=== PATIENT | female | born 1970 ===

== ENCOUNTER 2021-05-14 15:58 | Inpatient (IN) | payer MEDICAID, OTHER ==
[2021-05-14] VITALS (9 sets, daily range): BP systolic 113–132; BP diastolic 60–74
[~2021-05-14] VITALS: Ht 162.6 cm; Wt 64.5 kg
--- NOTE | 2021-05-14 16:15 | NUR ---
PT AMBULATORY TO ROOM FROM TRIAGE, CHANGED INTO GOWN. MONITORS IN PLACE. CALL LIGHT WITHIN REACH
--- NOTE | 2021-05-14 16:43 | NUR ---
MED STUDENT AT BS
--- NOTE | 2021-05-14 17:05 | NUR ---
PT RESTING ON SIRI DAUGHERTYN/VSS. CALL LIGHT WITHIN REACH. NO NEEDS AT THIS TIME
--- NOTE | 2021-05-14 17:32 | NUR ---
XRAY AT BS
--- NOTE | 2021-05-14 17:40 | NUR ---
PT SITTING ON NICOLE DAUGHERTY/GALEN. CALL LIGHT WITHIN REACH. NO NEEDS AT THIS TIME
[2021-05-14 17:44] LABS: MEAN CORPUSCULAR HEMOGLOBIN 15.1 pg (27.0-34.8); MEAN PLATELET VOLUME 8.2 fL (7.4-10.4); PLATELET COUNT 347 x10^3/uL (130-400); RED CELL DISTRIBUTION WIDTH 22.1 % (9.6-15.2)
[2021-05-14 17:55] LABS: ALBUMIN 3.7 g/dL (3.4-5.0); ANION GAP 6 mmol/L (5-15); CALCIUM 8.4 mg/dL (8.5-10.1); CHLORIDE 106 mmol/L (98-107)
[2021-05-14 17:56] LABS: MICROSCOPIC AUTO
[2021-05-14 18:07] LABS: ALANINE AMINOTRANSFERASE 18 U/L (12-78); ALKALINE PHOSPHATASE 51 U/L (45-117); BILIRUBIN,TOTAL 0.4 mg/dL (0.2-1.0); CREATININE 0.52 mg/dL (0.55-1.02); FREE T4 (FREE THYROXINE) 0.89 ng/dL (0.76-1.46); TOTAL PROTEIN 7.5 g/dL (6.4-8.2)
[2021-05-14 18:12] LABS: MEAN CORPUSCULAR HGB CONC 28.5 g/dL (32.4-35.8)
[2021-05-14 18:17] LABS: BASOS#(MANUAL) 0.04 x10^3/uL (0-0.1); BASOS% (MANUAL) 1 % (0-1); LYMPH#(MANUAL) 2.48 x10^3/uL (1-3.4); LYMPHS% (MANUAL) 59 % (22-44); MONOS#(MANUAL) 0.67 x10^3/uL (0.3-2.7); MONOS% (MANUAL) 16 % (2-9); SEG#(MANUAL) 1.01 x10^3/uL (1.8-6.8); SEGS% (MANUAL) 24 % (42-75)
[2021-05-14 18:19] LABS: ANISOCYTOSIS 2+; HYPOCHROMIA 3+; MICROCYTOSIS 3+; OVALOCYTES 1+; TARGET CELLS 1+
[2021-05-14 18:20] LABS: <PLATELET ESTIMATE> ADEQUATE; <PLT MORPHOLOGY> NORMAL PLT MORPH; POLYCHROMASIA 1+
--- NOTE | 2021-05-14 18:39 | NUR ---
MULTIPLE PIV ATTEMPTS. UNABLE TO OBTAIN PIV ACCESS AT THIS TIME
--- NOTE | 2021-05-14 18:49 | NUR ---
SHAINA RN AT BS FOR ULTRASOUND IV
--- NOTE | 2021-05-14 18:50 | NUR ---
REPORT TO PATRICE GRIJALVA
--- NOTE | 2021-05-14 18:54 | NUR ---
REPORT FROM RADHA RN
--- NOTE | 2021-05-14 19:45 | NUR ---
REPORT TO HILLARY IBRAHIM
[2021-05-14] MEDS ORDERED: ONDANSETRON 2MG/ML, 2ML IVPush PRN (20:00)
[2021-05-14] MEDS ORDERED: DOCUSATE 100 MG CAPSULE PO PRN (20:00)
[2021-05-14] MEDS ORDERED: GUAIFENESIN/DM 200-20MG, 10ML UDC PO PRN (20:00)
[2021-05-14] MEDS ORDERED: ZOLPIDEM 5MG TABLET PO PRN (20:00)
[2021-05-14] MEDS ORDERED: ENALAPRILAT 1.25 MG/ML, 2ML IVPush PRN (20:00)
[2021-05-14] MEDS ORDERED: morphine SULFATE 10 MG/ML, 1ML IVPush PRN (20:00)
[2021-05-14] MEDS ORDERED: METHOCARBAMOL 500 MG TABLET PO PRN (20:00)
--- NOTE | 2021-05-14 20:20 | NUR ---
BLOOD TRANSFUSION OF PRBC STARTED AT 1956, PT TOLERATING WELL AT 15 MIN CHECK POINT, GALEN RIVERA
[2021-05-14] MEDS: IRON SUCROSE COMPLEX 100MG/5ML IV SCH (21:50)
[2021-05-15] MEDS: LACTATED RINGERS 1,000 ML IV SCH ×2 (00:05→17:13)
[2021-05-15 01:00] VITALS: BP 134/77
[2021-05-15 05:19] LABS: MEAN CORPUSCULAR HEMOGLOBIN 19.7 pg (27.0-34.8); MEAN CORPUSCULAR HGB CONC 31.2 g/dL (32.4-35.8); MEAN PLATELET VOLUME 8.3 fL (7.4-10.4); PLATELET COUNT 299 x10^3/uL (130-400); RED BLOOD COUNT 4.06 x10^6/uL (3.82-5.3); RED CELL DISTRIBUTION WIDTH 33.4 % (9.6-15.2)
[2021-05-15 05:24] LABS: ANION GAP 6 mmol/L (5-15); CALCIUM 8.6 mg/dL (8.5-10.1); CHLORIDE 111 mmol/L (98-107); CREATININE 0.56 mg/dL (0.55-1.02)
[2021-05-15 06:08] LABS: EOS#(MANUAL) 0.04 x10^3/uL (0.0-0.4); EOS% (MANUAL) 1 % (1-7); LYMPH#(MANUAL) 2.02 x10^3/uL (1-3.4); LYMPHS% (MANUAL) 48 % (22-44)
[2021-05-15 06:10] LABS: ANISOCYTOSIS 3+; HYPOCHROMIA 3+; MICROCYTOSIS 2+; MONOS#(MANUAL) 0.29 x10^3/uL (0.3-2.7); MONOS% (MANUAL) 7 % (2-9); SEG#(MANUAL) 1.85 x10^3/uL (1.8-6.8); SEGS% (MANUAL) 44 % (42-75)
[2021-05-15 06:11] LABS: OVALOCYTES 1+; POLYCHROMASIA 1+
[2021-05-15 06:12] LABS: <PLATELET ESTIMATE> ADEQUATE; <PLT MORPHOLOGY> NORMAL PLT MORPH
[2021-05-15 07:10] VITALS: BP 119/72
[2021-05-15] MEDS: IRON SUCROSE COMPLEX 100MG/5ML IV SCH (08:39)
[2021-05-15 12:23] VITALS: BP 141/75
[2021-05-15] MEDS ORDERED: LEVO25CA4 PO (16:32)
[2021-05-15 18:28] VITALS: BP 139/75
[2021-05-16] VITALS (9 sets, daily range): BP systolic 124–148; BP diastolic 73–81
[2021-05-16] MEDS: OXYcodone IR 5MG TABLET PO PRN ×2 (01:45→22:15)
[2021-05-16] MEDS: ACETAMINOPHEN 325 MG TABLET PO PRN ×2 (01:45→22:15)
[2021-05-16] MEDS: LEVOTHYROXINE 25 MCG TABLET PO SCH (05:13)
[2021-05-16 05:39] LABS: MEAN CORPUSCULAR HEMOGLOBIN 19.6 pg (27.0-34.8); MEAN CORPUSCULAR HGB CONC 30.9 g/dL (32.4-35.8); MEAN PLATELET VOLUME 8.2 fL (7.4-10.4); PLATELET COUNT 291 x10^3/uL (130-400); RED BLOOD COUNT 4.06 x10^6/uL (3.82-5.3); RED CELL DISTRIBUTION WIDTH 34.1 % (9.6-15.2)
[2021-05-16 05:44] LABS: ANION GAP 4 mmol/L (5-15); CALCIUM 8.6 mg/dL (8.5-10.1); CHLORIDE 109 mmol/L (98-107)
[2021-05-16 06:30] LABS: ANISOCYTOSIS 2+; EOS#(MANUAL) 0.34 x10^3/uL (0.0-0.4); EOS% (MANUAL) 6 % (1-7); HYPOCHROMIA 3+; LYMPH#(MANUAL) 3.14 x10^3/uL (1-3.4); LYMPHS% (MANUAL) 56 % (22-44); MICROCYTOSIS 2+; MONOS#(MANUAL) 0.28 x10^3/uL (0.3-2.7); MONOS% (MANUAL) 5 % (2-9); OVALOCYTES 1+; POLYCHROMASIA 1+; SEG#(MANUAL) 1.85 x10^3/uL (1.8-6.8); SEGS% (MANUAL) 33 % (42-75)
[2021-05-16 06:31] LABS: <PLATELET ESTIMATE> ADEQUATE; <PLT MORPHOLOGY> NORMAL PLT MORPH
[2021-05-16] MEDS: IRON SUCROSE COMPLEX 100MG/5ML IV SCH (08:30)
[2021-05-16] MEDS ORDERED: GOLYTELY 4,000ML ORAL.SOL PO ONE (14:00)
[2021-05-17 02:18] VITALS: BP 129/72
[2021-05-17] MEDS: LACTATED RINGERS 1,000 ML IV SCH ×2 (05:12→23:40)
[2021-05-17] MEDS: LEVOTHYROXINE 25 MCG TABLET PO SCH (05:15)
[2021-05-17 05:32] LABS: MEAN CORPUSCULAR HEMOGLOBIN 20.8 pg (27.0-34.8); MEAN CORPUSCULAR HGB CONC 30.9 g/dL (32.4-35.8); MEAN PLATELET VOLUME 8.4 fL (7.4-10.4); PLATELET COUNT 292 x10^3/uL (130-400); RED BLOOD COUNT 4.48 x10^6/uL (3.82-5.3)
[2021-05-17 05:40] LABS: INTERNATIONAL NORMALIZED RATIO 0.99 (0.93-1.1); PROTHROMBIN TIME 10.6 Seconds (9.6-11.5)
[2021-05-17 05:44] LABS: ANION GAP 6 mmol/L (5-15); CALCIUM 8.6 mg/dL (8.5-10.1); CHLORIDE 110 mmol/L (98-107); CREATININE 0.62 mg/dL (0.55-1.02)
[2021-05-17 06:17] LABS: BAND#(MANUAL) 0.05 x10^3/uL; BANDS%(MANUAL) 1 % (0-7); EOS#(MANUAL) 0.15 x10^3/uL (0.0-0.4); EOS% (MANUAL) 3 % (1-7); LYMPH#(MANUAL) 2.94 x10^3/uL (1-3.4); LYMPHS% (MANUAL) 60 % (22-44); METAMYELOCYTES# (MANUAL) 0.05 x10^3/uL (0-0); METAMYELOCYTES% (MANUAL) 1 % (0-1); MONOS#(MANUAL) 0.25 x10^3/uL (0.3-2.7); MONOS% (MANUAL) 5 % (2-9); SEG#(MANUAL) 1.47 x10^3/uL (1.8-6.8); SEGS% (MANUAL) 30 % (42-75)
[2021-05-17 06:18] LABS: ANISOCYTOSIS 2+; HYPOCHROMIA 3+; MICROCYTOSIS 2+; OVALOCYTES 1+; POLYCHROMASIA 1+
[2021-05-17 06:19] LABS: <PLATELET ESTIMATE> ADEQUATE; <PLT MORPHOLOGY> NORMAL PLT MORPH
[2021-05-17] MEDS: IRON SUCROSE COMPLEX 100MG/5ML IV SCH (07:36)
[2021-05-17 07:50] VITALS: BP 124/76
[2021-05-17 12:44] VITALS: BP 135/80
[2021-05-17] MEDS ORDERED: CEFOTETAN PMX 1GM/50ML 50 ML IVPB ONE (17:30)
[2021-05-17] MEDS ORDERED: INDOCYANINE GREEN 25 MG VIAL ONE (17:39)
[2021-05-17] MEDS ORDERED: EPINEPHRINE 1 MG/ML, 1ML ONE (17:39)
[2021-05-17] MEDS ORDERED: HEPARIN 1,000 UNITS/ML, 10ML ONE (17:39)
[2021-05-17] MEDS ORDERED: BUPIVACAINE/PF 0.25% ONE (17:39)
[2021-05-17] MEDS ORDERED: FENTANYL PF 250 MCG/5ML ONE (18:29)
[2021-05-17] MEDS ORDERED: MIDAZOLAM 1 MG/ML, 2ML ONE (18:29)
[2021-05-17] MEDS ORDERED: ONDANSETRON 2MG/ML, 2ML ONE (19:16)
[2021-05-17] MEDS ORDERED: ROCURONIUM 10MG/ML,5ML ONE ×2 (19:16→20:34)
[2021-05-17] MEDS ORDERED: GLYCOPYRROLATE 0.2MG/1ML, 5ML ONE (19:16)
[2021-05-17] MEDS ORDERED: SUCCINYLCHOLINE 20 MG/ML, 10ML ONE (19:16)
[2021-05-17] MEDS ORDERED: DEXAMETHASONE 4 MG/ML, 1ML ONE (19:16)
[2021-05-17] MEDS ORDERED: NEOSTIGMINE 1 MG/ML, 10ML ONE (19:16)
[2021-05-17] MEDS ORDERED: CEFAZOLIN 1,000 MG ONE (19:16)
[2021-05-17] MEDS ORDERED: PROPOFOL 10 MG/ML, 20ML ONE (19:16)
[2021-05-17] MEDS ORDERED: HYDROmorphone 1 MG/ML, 1ML INJ ONE ×3 (19:17→22:06)
[2021-05-17] MEDS ORDERED: SUGAMMADEX 200 MG/2 ML IVPush ONE (20:59)
[2021-05-17] MEDS ORDERED: hydrALAzine 20 MG/ML, 1ML IV PRN (21:30)
[2021-05-17] MEDS ORDERED: METHOCARBAMOL 1,000 MG in DEXTROSE 5% 100 ML IV PRN (21:30)
[2021-05-17] MEDS ORDERED: ONDANSETRON 2MG/ML, 2ML IVPush PRN (21:30)
[2021-05-17] MEDS ORDERED: PROMETHAZINE 25 MG/ML, 1ML IVPush PRN (21:30)
[2021-05-17] MEDS ORDERED: ACETAMINOPHEN 325 MG TABLET PO PRN (21:30)
[2021-05-17] MEDS ORDERED: OXYcodone 5 MG/5 ML ORAL.SOL UDC PO PRN (21:30)
[2021-05-17] MEDS ORDERED: PROMETHAZINE 25 MG SUPP PR PRN (21:30)
[2021-05-17] MEDS ORDERED: LORazepam 2 MG/ML, 1ML IVPush PRN (21:30)
[2021-05-17] MEDS ORDERED: HYDROmorphone 1 MG/ML, 1ML INJ IVPush PRN (21:30)
[2021-05-17] MEDS ORDERED: LABETALOL 5MG/ML, 20ML IV PRN (21:30)
[2021-05-17] MEDS ORDERED: MEPERIDINE/PF 25MG/0.5ML IVPush PRN (21:30)
[2021-05-17] MEDS ORDERED: LABETALOL 5MG/ML, 20ML ONE (21:32)
[2021-05-17] MEDS ORDERED: FENTANYL PF 100 MCG/2ML ONE (21:46)
[2021-05-17] MEDS ORDERED: OXYcodone 5 MG/5 ML ORAL.SOL UDC ONE ×2 (21:47→22:06)
[2021-05-17] MEDS: FENTANYL PF 100 MCG/2ML IV PRN ×2 (21:53→22:00)
[2021-05-17 22:42] VITALS: BP 145/77
[2021-05-18 00:09] VITALS: BP 142/83
[2021-05-18] MEDS: ACETAMINOPHEN 325 MG TABLET PO PRN ×2 (02:49→06:39)
[2021-05-18] MEDS: OXYcodone IR 5MG TABLET PO PRN ×3 (02:49→12:52)
[2021-05-18 04:17] VITALS: BP 122/71
[2021-05-18] MEDS: LEVOTHYROXINE 25 MCG TABLET PO SCH (06:40)
[2021-05-18 07:00] VITALS: BP 115/67
[2021-05-18] MEDS: IRON SUCROSE COMPLEX 100MG/5ML IV SCH (08:13)
[2021-05-18] MEDS ORDERED: LEVO25TA2 PO (10:41)
[2021-05-18] MEDS ORDERED: ACET-2274 PO (10:41)
[2021-05-18 11:37] LABS: MEAN CORPUSCULAR HEMOGLOBIN 21.3 pg (27.0-34.8); MEAN CORPUSCULAR HGB CONC 30.8 g/dL (32.4-35.8); MEAN PLATELET VOLUME 8.5 fL (7.4-10.4); PLATELET COUNT 236 x10^3/uL (130-400); RED BLOOD COUNT 4.17 x10^6/uL (3.82-5.3); RED CELL DISTRIBUTION WIDTH 36.5 % (9.6-15.2)
[2021-05-18 11:46] LABS: ANION GAP 5 mmol/L (5-15); CALCIUM 8.6 mg/dL (8.5-10.1); CHLORIDE 106 mmol/L (98-107); CREATININE 0.63 mg/dL (0.55-1.02)
[2021-05-18] MEDS: LACTATED RINGERS 1,000 ML IV SCH (12:00)
[2021-05-18 12:02] LABS: ANISOCYTOSIS 2+; BAND#(MANUAL) 0.19 x10^3/uL; BANDS%(MANUAL) 2 % (0-7); HYPOCHROMIA 3+; LYMPH#(MANUAL) 2.09 x10^3/uL (1-3.4); LYMPHS% (MANUAL) 22 % (22-44); MICROCYTOSIS 2+; MONOS#(MANUAL) 0.76 x10^3/uL (0.3-2.7); MONOS% (MANUAL) 8 % (2-9); OVALOCYTES 1+; POLYCHROMASIA 1+; SEG#(MANUAL) 6.46 x10^3/uL (1.8-6.8); SEGS% (MANUAL) 68 % (42-75); TEAR DROPS 1+
[2021-05-18 12:03] LABS: <PLATELET ESTIMATE> ADEQUATE; <PLT MORPHOLOGY> NORMAL PLT MORPH
== END 2021-05-18 13:37 | disposition home or self-care (01) | DRG 519 ==
LOC: ED 20:00 → EDIP 20:46 → 4NE 20:50 → DCLOUNGE 05-18 13:28
PROVIDERS: ADMIT Internal Medicine; ATTEND Internal Medicine
PROC: 30233N1 Transfusion of Nonautologous Red Blood Cells into Peripheral Vein, Percutaneous Approach (ICD-10-PCS; principal; 2021-05-14)
PROC: 0UT7FZZ Resection of Bilateral Fallopian Tubes, Via Natural or Artificial Opening With Percutaneous Endoscopic Assistance (ICD-10-PCS; 2021-05-17)
PROC: 8E0W4CZ Robotic Assisted Procedure of Trunk Region, Percutaneous Endoscopic Approach (ICD-10-PCS; 2021-05-17)
PROC: 0UT9FZZ Resection of Uterus, Via Natural or Artificial Opening With Percutaneous Endoscopic Assistance (ICD-10-PCS; 2021-05-17)
DX: D25.9 Leiomyoma of uterus, unspecified (principal); D62 Acute posthemorrhagic anemia; E87.1 Hypo-osmolality and hyponatremia; D46.9 Myelodysplastic syndrome, unspecified; K59.00 Constipation, unspecified; E03.9 Hypothyroidism, unspecified; N93.9 Abnormal uterine and vaginal bleeding, unspecified; F17.210 Nicotine dependence, cigarettes, uncomplicated; H93.19 Tinnitus, unspecified ear; N92.1 Excessive and frequent menstruation with irregular cycle; N93.8 Other specified abnormal uterine and vaginal bleeding; N94.10 Unspecified dyspareunia; Z56.0 Unemployment, unspecified; Z82.49 Family history of ischemic heart disease and other diseases of the circulatory system; Z82.3 Family history of stroke; Z87.11 Personal history of peptic ulcer disease
CPT/HCPCS: 36415; 36430; 71045; 76856; 80048; 80053; 81001; 82728; 83001; 83540; 83550; 83735; 84100; 84439; 84443; 84481; 84703; 85025; 85610; 85730; 86850; 86900; 86923; 87086; 87635; 88307; 93005; G0378; J0171; J0690; J1100; J1170; J1644; J1756; J2250; J2405; J2704; J2710; J3010; J0330; J2270; J2800; J7120; P9016